=== PATIENT | male | born 1945 | race Native Hawaiian/Other Pacific Islander ===

== ENCOUNTER 2023-01-06 12:54 | Outpatient (CLI) | payer MEDICARE | END 2023-01-06 16:00 | disposition critical access hospital (66) | LOC: EMS 12:54 | DX: I46.9 Cardiac arrest, cause unspecified (principal) | CPT/HCPCS: A0425; A0433 ==

== ENCOUNTER 2023-01-06 13:01 | Emergency (ER) | payer MEDICARE ==
[2023-01-06] MEDS ORDERED: SODIUM BICARBONATE ABBOJECT 50 MEQ/50 ML SYRINGE IVP ONE (13:02)
[2023-01-06] MEDS ORDERED: SODIUM CHLORIDE 0.9% 1,000 ML IV STA (13:24)
--- NOTE | 2023-01-06 13:28 | ED Physician Documentation ---
PD HPI CPR - Stated complaint Stated Complaint: ROSC - History obtained from History obtained from: EMS - Additional information Additional information: 77-year-old gentleman who presents after cardiac arrest. All of the history is from EMS. Reportedly was found down by family at 1114 and when EMS arrived he was pulseless and CPR was started. He was initially in V-fib then V. tach. He was shocked several times and received a total of 8 rounds of epinephrine, also lidocaine, bicarb, and calcium prior to arrival. He has achieved ROSC. Per EMS medical history includes recent ventral hernia repair, nephrectomy and single kidney status. PD PAST MEDICAL HISTORY - Present Medications Home Medications: Ambulatory Orders Medication Instructions Recorded Confirmed No Known Home Medications 01/06/23 01/06/23 - Allergies Allergies/Adverse Reactions: Allergies Allergy/AdvReac Type Severity Reaction Status Date / Time No Known Drug Allergies Allergy Verified 01/06/23 13:32 PD ED PE NORMAL - Vitals Vital signs reviewed: Yes - General General: Other (Intubated with femoral pulses palpable but weak on exam.) - Cardiac Cardiac: RRR, No murmur - Respiratory Respiratory: Other (Bilateral breath sounds, when ventilated) - Abdomen Abdomen: Other (Extensive abdominal scars, distended) - Extremities Extremities: No edema, No calf tenderness / cord - Neuro Neuro: Other ( chewing on the tube somewhat.) Eye Opening: None Motor: None Verbal: None GCS Score: 3 Results - Vitals Vitals: Vital Signs - 24 hr 01/06/23 13:24 Heart Rate 52 L Respiratory 21 Rate Blood Pressure 79/47 L O2 Saturation 67 L Oxygen O2 Source Ambu bag - EKG (time done) 1314 EKG releavant findings:: EKG personally interpreted by author of this note. Relevant findings are: Rate: Rate (enter#) (66) Rhythm: NSR, LAE, EILEEN Intervals: LBBB - Labs Labs: Laboratory Tests 01/06/23 01/06/23 13:13 13:13 WBC 20.5 H RBC 4.39 L Hgb 13.7 L Hct 43.6 MCV 99.3 H MCH 31.2 H MCHC 31.4 L RDW 12.4 Plt Count 112 L MPV 9.8 Neut # (Auto) Not Reportable Lymph # (Auto) Not Reportable [place] # (Auto) Not Reportable Eos # (Auto) Not Reportable Baso # (Auto) Not Reportable Absolute Nucleated RBC Not Reportable Total Counted 100 Band Neuts % (Manual) 13 H Reactive Lymphs % (Man) 19 Abnorm Lymph % (Manual) 0 Myelocytes % 3 H Nucleated RBC % Not Reportable Neutrophils # (Manual) 11.1 H Lymphocytes # (Manual) 8.6 H Monocytes # (Manual) 0.0 Eosinophils # (Manual) 0.2 Basophils # (Manual) 0.0 Nucleated RBCs 2 Differential Comment MANUAL DIFFERENTIAL Manual Slide Review Indicated B-Natriuretic Peptide 81 Procedures - Central Line - Major Central Line Preparation: Unable to obtain consent, Time out completed, Ultrasound used, Sterile prep and drape Central line location: Right Femoral Central line type: Triple lumen Central line aftercare: Chlorhexidine disc placed, Secured, Placement confirmed, Bundle checklist complete, Pt tolerated well PD Medical Decision Making - ED course ED course: 77-year-old gentleman presents after ROSC after cardiac arrest with V-fib V. tach in the field and then PEA. On arrival he was hypotensive and vasoplegic and a central line was expeditiously placed in the right groin and started on Levophed. He had been getting epinephrine through his intraosseous line. He was intubated prehospital. We were trying to stabilize him and prepped him for a CT reid scan when he bradycardia down and lost pulses again. CPR was restarted and he was given atropine 0.5 mg IVP and ACLS protocol was followed with approximately 6 more rounds of epinephrine also getting 2 doses of sodium bicarb. During this time on pulse checks his rhythm on the monitor progressively became wider and more bradycardic despite CPR initially by the electronics technician and later via the Ross machine. His arrived to the hospital and was brought into the room and as his rhythm degenerated and the chance of survival became more more futile she agreed with ceasing resuscitative efforts and the code was called at 1357. - Critical Care Time(min): 45 Time Includes: Direct patient care, Reassess patient, Document care, Coordinate care, Family consult for tx dec Data interpretation: Labs, CXR Procedures excluded from critical care time: Central IV, EKG Departure - Departure Disposition: 20 Clinical Impression: Sudden cardiac
[2023-01-06 13:29] LABS: BASOPHILS % (AUTO) 0.4 %; EOSINOPHILS % (AUTO) 1.5 %; HCT - HEMATOCRIT 43.6 % (42.0-52.0); HGB - HEMOGLOBIN 13.7 g/dL (14.0-18.0); LYMPHOCYTES % (AUTO) 39.3 %; MEAN CORPUSCULAR HEMOGLOBIN 31.2 pg (27.0-31.0); MEAN CORPUSCULAR HGB CONC 31.4 g/dL (32.0-36.0); MEAN CORPUSCULAR VOLUME 99.3 fL (80.0-94.0); MEAN PLATELET VOLUME 9.8 fL (7.4-11.4); MONOCYTES % (AUTO) 2.1 %; NEUTROPHILS % (AUTO) 48.2 %; PLT - PLATELET COUNT 112 10^3/uL (130-450); RED BLOOD COUNT 4.39 10^6/uL (4.70-6.10); RED CELL DISTRIBUTION WIDTH 12.4 % (12.0-15.0); WHITE BLOOD COUNT 20.5 x10^3/uL (4.8-10.8)
[2023-01-06 13:32] LABS: ABNORMAL LYMPHS % (MANUAL) 0 %; SLIDE REVIEW? Indicated
[2023-01-06] MEDS ORDERED: iohexoL-300 100 ML VIAL ONE (13:44)
[2023-01-06 13:51] LABS: BAND NEUTROPHILS % (MANUAL) 13 %; DIFFERENTIAL COMMENT MANUAL DIFFERENTIAL; EOSINOPHILS # (MANUAL) 0.2 10^3/uL (0-0.7); LYMPHOCYTES # (MANUAL) 8.6 10^3/uL (1.5-3.5); LYMPHOCYTES % (MANUAL) 23 %; MYELOCYTES % (MANUAL) 3 %; NEUTROPHILS # (MANUAL) 11.1 10^3/uL (1.5-6.6); NUCLEATED RBC (MANUAL) 2 %; REACTIVE LYMPHS % (MANUAL) 19 %
[2023-01-06] MEDS ORDERED: NOREPINEPHRINE/D5W 8 MG/250 ML BAG IV SCH (14:00)
[2023-01-06] MEDS ORDERED: EPINEPHrine ABBOJECT 1 MG/10 ML SYRINGE IVP STA (14:04)
[2023-01-06] MEDS ORDERED: SODIUM BICARBONATE ABBOJECT 50 MEQ/50 ML SYRINGE IVP STA (14:04)
[2023-01-06] MEDS ORDERED: ATROPINE ABBOJECT 0.5 MG/5 ML SYRINGE IVP STA (14:04)
--- NOTE | 2023-01-06 14:04 | XRAY Report ---
PROCEDURE: Chest 1 View X-Ray INDICATIONS: Post Arrest TECHNIQUE: One view of the chest was acquired. COMPARISON: None. FINDINGS: Surgical changes and devices: Endotracheal tube is seen with tip projecting approximately 5.5 cm abo ve the genesis. An enteric tube terminates at the gastroesophageal junction. Defibrillator pads are pr esent. Lungs and pleura: Hazy opacities overlying both lungs may represent pleural effusions or pneumothora x on this supine exam. Diffuse bilateral pulmonary opacities are suspicious for edema. Mediastinum: Mediastinal contours appear normal. Heart size is borderline. Bones and chest wall: No suspicious bony lesions. Overlying soft tissues appear unremarkable. IMPRESSION: 1.Endotracheal tube ends in the central position. 2.Enteric tube terminates at the gastroesophageal junction. 3.Diffuse bilateral pulmonary opacities and suspected layering pleural effusions, suspicious for fareed a or diffuse alveolar hemorrhage. Reviewed by: Lloyd Looney MD on 01/06/2023 2:02 PM PDT Approved by: Lloyd Looney MD on 01/06/2023 2:02 PM PDT Station ID: [id number]
[2023-01-06 15:11] VITALS: BP 141/116
[2023-01-06] MEDS ORDERED: D5W IV ONE (16:46)
[2023-01-06] MEDS ORDERED: ATROPINE ABBOJECT 0.5 MG/5 ML SYRINGE IVP ONE (16:46)
[2023-01-06] MEDS ORDERED: NOREPINEPHRINE IV ONE (16:46)
[2023-01-06] MEDS ORDERED: EPINEPHrine ABBOJECT 1 MG/10 ML SYRINGE IVP ONE (16:46)
== END 2023-01-06 16:54 | disposition expired ==
LOC: ED 13:01
DX: I46.9 Cardiac arrest, cause unspecified (principal)
CPT/HCPCS: 36415; 36556; 80053; 82803; 83605; 83735; 83880; 84100; 84484; 85025; 85610; 86850; 86900; 86901; 92950; 93005; 94002; 94770; 99291